=== PATIENT | male | born 1960 | race Caucasian/White ===

== ENCOUNTER 2020-03-15 06:04 | Emergency (ER) | payer SELFPAY ==
[2020-03-15 06:11] VITALS: BP 141/77; PULSE 112; RESP 16; TEMP 36.8; O2SAT 95; BMI 20.3
--- NOTE | 2020-03-15 06:29 | XR_ITS ---
WS: [id number] LEFT ANKLE: 3 VIEW(S) TECHNIQUE: AP, oblique(s) and lateral. HISTORY: ankle pain COMPARISON: None available. No acute fractures are identified. Severe degenerative changes at the talocalcaneal joint space. Subtalar joint is markedly narrowed. Th ere was bodies and fragments and sclerosis. Abnormal appearance of the calcaneus may be from old frac ture. There is mild flattening of the arch of the foot and the calcaneus. Moderate narrowing of the t ibiotalar joint space. Small amount of soft tissue edema around the ankle. No soft tissue abnormality. XR/XR ankle LT min 3V* [id number] IMPRESSION: 1. No acute fractures identified. 2. Severe degenerative changes at the talocalcaneal joint space and subtalar j oint. Probably from old trauma with healing. There are bony fragments and scler osis. 3. Moderate narrowing of the tibiotalar joint space.
[2020-03-15 06:35] VITALS: PULSE 87
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
[2020-03-15 06:39] VITALS: BP 157/82; PULSE 87; RESP 16; O2SAT 96
--- NOTE | 2020-03-15 07:20 | CTR_ITS ---
PROCEDURE INFORMATION: Exam: CT Left Lower Extremity Without Contrast, Foot Exam date and time: 03/15/2020 7:21 AM Age: 59 years old Clinical indication: Pain; Swelling, leg or foot; Left; Additional info: Foot pain TECHNIQUE: Imaging protocol: CT of the Left lower extremity without contrast was performed. Exam focused on the foot. Radiation optimization: All CT scans at this facility use at least one of these dose optimization techniques: automated exposure control; mA and/or kV adjustment per patient size (includes targeted exams where dose is matched to clinical indication); or iterative reconstruction. COMPARISON: CR XR ankle LT min 3V* [id number] 03/15/2020 6:49 AM RADIATION DOSE METRICS: Total DLP: 165.65 mGy-cm FINDINGS: Bones/joints: Prominent deformity of the calcaneus with multifocal marginal areas of cortical irregularity and sclerosis with areas of subtalar articular surface joint incongruity. There is fragmented calcifications at the posterior talocalcaneal articulation with abundant degenerative hypertrophic formation and sclerosis likely indicative of chronic posttraumatic deformity and severe secondary degenerative arthritis. There is degenerative change of multiple tarsal articulations most noted at the talonavicular and calcaneocuboid articulations. Degenerative change at the ankle joint. Well corticated calcifications reside adjacent to the distal fibula most likely indicating chronic avulsion fracture fragment. Linear calcification adjacent to the posterior distal tibia. No acute fracture. Soft tissues: Superficial soft tissue edema. CT/CT foot LT wo con* [id number] IMPRESSION: 1. Likely severely distorted and depressed chronic fracture deformity of the calcaneus. 2. 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 3. Diffuse superficial edema. 4. Likely chronic avulsion fracture fragments adjacent to the distal fibula. Radiation Dose CTDIVOL = (mGy): DLP = 165.65 (mGy-cm)
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
--- NOTE | 2020-03-15 08:37 | DCPLANNER ---
environmental services manager was asked to schedule a follow up appointment for patient with ortho. environmental services manager called the ortho clinic, spoke with Renea, gave clinic patients information. environmental services manager was told that patients information would be printed and reviewed. Clinic will call supervisor case loading and patient with appointment information.
[2020-03-15 08:39] VITALS: BP 123/73; PULSE 72; RESP 16; O2SAT 98
--- NOTE | 2020-03-16 09:54 | DCPLANNER ---
sql manager called patient to inform patient of the scheduled appointment. Patient stated that the appointment would need to be cancelled, [place], and he is going to go home. Patient stated that he is [place] and he can go see his physician and it does not cost him any money. Luis moses called the ortho clinic, spoke with Pat, and told Pat that the appointment needed to be cancelled.
--- NOTE | 2020-03-18 10:06 | DCPLANNER ---
Patients appointment with ortho, has been cancelled.
== END 2020-03-15 08:40 | disposition home or self-care (01) ==
PROVIDERS: Emergency Provider Family Medicine
DX: M12.872 Other specific arthropathies, not elsewhere classified, left ankle and foot (principal); F17.210 Nicotine dependence, cigarettes, uncomplicated
CPT/HCPCS: 12345; 73610; 73700; 99281; 99283